=== PATIENT | male | born 1965 | race Caucasian/White ===

== ENCOUNTER 2018-02-03 13:55 | Emergency (ER) | payer BC ==
[~2018-02-03] VITALS: Ht 182.9 cm; Wt 129.5 kg
[2018-02-03 13:59] VITALS: BP 144/89; PULSE 98; TEMP 97.8
[2018-02-03] MEDS ORDERED: CEPHALEXIN500 M1 PO (15:04)
== END 2018-02-03 15:45 | disposition home or self-care (01) ==
LOC: COL.ER 13:55
DX: S81.811A Laceration without foreign body, right lower leg, initial encounter (principal); Z23 Encounter for immunization; W22.09XA Striking against other stationary object, initial encounter; Y92.009 Unspecified place in unspecified non-institutional (private) residence as the place of occurrence of the external cause